=== PATIENT | female | born 1965 | race Caucasian/White ===

== ENCOUNTER 2017-04-03 14:57 | Emergency (ER) | payer OTHER ==
[~2017-04-03] VITALS: Ht 170.2 cm; Wt 121.6 kg
--- NOTE | ~2017-04-03 | EKG ---
[address] [place] [address] ELECTROCARDIOGRAM REPORT Name: SATHISH BANERJEE Bautista Room #: [facility]ITALAshli[facility] [id number] Admission: 04/03/17 Attend Phys: Discharge: Date of : 67 Report #: [id number] THIS REPORT FOR: //name// [facility] ED Test Date: 2017-04-03 Test Time: 15:00:50 Pat Name: SATHISH BANERJEE Department: Room: Gender: F [employer] Technician: SHAHRZAD : 1965 Requested By: Corey Borges Order Number: [id number] MD: Bryan Adkins Measurements Intervals [place] Rate: 59 P: 24 GA: 188 QRS: 36 QRSD: 94 T: 33 QT: 446 QTc: 442 Interpretive Statements Sinus rhythm No previous ECG available for comparison Electronically Signed On 04-03-2017 16:59:57 CDT by Bryan Adkins [email or web address] <ELECTRONICALLY SIGNED> By: Bryan Adkins MD 04/03/17 1659 1500 1500 Bryan Adkins MD /EPI
[2017-04-03 14:58] VITALS: BP 127/66
[2017-04-03] MEDS ORDERED: TOPROL XL100 MG PO (15:18)
[2017-04-03] MEDS ORDERED: TORSEMIDE20 MG PO (15:18)
[2017-04-03] MEDS ORDERED: COZAAR 25 MG TA25 M2 PO (15:18)
[2017-04-03] MEDS ORDERED: ASPIRIN81 M2 PO (15:19)
[2017-04-03 15:59] LABS: ABSOLUTE NEUTROPHILS 4.9 thou/uL (1.4-8.2); BASOPHILS 0.5 % (0.0-2.0); EOSINOPHILS 2.2 % (0.0-3.0); HEMATOCRIT 40.7 % (37.0-47.0); HEMOGLOBIN 13.8 gm/dL (12.0-15.0); MCH 29.6 pg (26.0-34.0); MCHC 33.8 g/dL (28.0-37.0); MCV 87.5 fL (80.0-100.0); MONOCYTES 6.6 % (1.0-8.0); PLATELET COUNT 231 thou/uL (150-400); POLYS 57.7 % (36.0-66.0); RBC 4.66 mil/uL (4.20-5.00); RDW 13.7 % (10.5-14.5); WBC 8.5 thou/uL (4.0-11.0)
[2017-04-03 16:03] LABS: MANUAL DIFF NO
[2017-04-03 16:10] LABS: ANION GAP 10 mmol/L (7-16); BUN 17 mg/dL (7-18); CALCIUM 9.1 mg/dL (8.5-10.1); CHLORIDE 101 mmol/L (98-107); CO2 29 mmol/L (21-32); CREATININE 0.8 mg/dL (0.6-1.0); GLUCOSE 91 mg/dL (74-106); POTASSIUM 3.5 mmol/L (3.5-5.1); SODIUM 140 mmol/L (136-145)
[2017-04-03 16:16] LABS: ALBUMIN 4.1 g/dL (3.4-5.0); ALKALINE PHOSPHATASE 142 U/L (46-116); MAGNESIUM 2.3 mg/dL (1.8-2.4); NT-PRO BRAIN NAT PEPTIDE 145 pg/mL (<300); SGOT 24 U/L (15-37); SGPT 39 U/L (30-65); TOTAL BILIRUBIN 0.3 mg/dL (<0.1-1.0); TOTAL PROTEIN 7.4 g/dL (6.4-8.2); TROPONIN-I < 0.04 ng/mL (<0.04-0.07)
[2017-04-03 16:17] LABS: CK-MB MASS 0.8 ng/mL (<0.5-3.6)
[2017-04-03 16:19] LABS: APTT 27.3 Seconds (24.5-32.8); INR 1.1
[2017-04-03 16:28] LABS: LARGE PLATELETS RARE; PLATELET ESTIMATE NORMAL
[2017-04-03] MEDS ORDERED: PREDNISONE 20 M20 MG PO (18:05)
[2017-04-03] MEDS ORDERED: VENTOLIN HFA 1818 GM INH (18:05)
[2017-04-03 18:22] VITALS: BP 152/68
== END 2017-04-03 18:24 | disposition left against medical advice (07) ==
LOC: ER 14:57 → EROBS 17:20 → ER 17:20 → EROBS 18:24
PROVIDERS: Emergency Medicine
DX: R07.89 Other chest pain (principal); M79.604 Pain in right leg; E78.5 Hyperlipidemia, unspecified; R06.00 Dyspnea, unspecified; I11.0 Hypertensive heart disease with heart failure; I50.9 Heart failure, unspecified; E66.9 Obesity, unspecified; Z88.7 Allergy status to serum and vaccine; Z88.8 Allergy status to other drugs, medicaments and biological substances

== ENCOUNTER → 2017-07-23 | Outpatient (CLI) | payer OTHER ==
[~2017-07-23] MED LIST: ASPIRIN81 M2 PO; COZAAR 25 MG TA25 M2 PO; PREDNISONE 20 M20 MG PO; TOPROL XL100 MG PO; TORSEMIDE20 MG PO; VENTOLIN HFA 1818 GM INH
== END ==
LOC: RAD 13:02
DX: Z12.31 Encounter for screening mammogram for malignant neoplasm of breast (principal)